=== PATIENT | male | born 1980 | race Caucasian/White ===

== ENCOUNTER 2023-12-07 15:57 | Inpatient (IN) | payer OTHER, SELFPAY ==
[2023-12-07] VITALS (14 sets, daily range): BP systolic 116–148; BP diastolic 67–86; BMI 29.6; BMI 30.1
[2023-12-07 12:52] LABS: Glucose - Point of Care 349 mg/dl (70-99)
--- NOTE | 2023-12-07 13:01 | EDRN ---
Dosed himself with 7 units Novolog u-100 via his pump
[2023-12-07 13:27] LABS: Venous Blood Gas B.E. -9.5 mmol/L (-4 to +4); Venous Blood Gas HCO3 15.9 mmol/L (22-27); Venous Blood Gas O2 Sat % 86.5 %; Venous Blood Gas pCO2 33 mmHg (35-48); Venous Blood Gas pH 7.29 (7.32-7.43); Venous Blood Gas pO2 53 mmHg (30-50)
--- NOTE | 2023-12-07 13:33 | ED.GENMED ---
History of Present Illness
General
Chief Complaint: Abdominal Symptoms
Source: patient and spouse
Time Seen by Provider: 12/07/23 13:13
Travel History
Have you had any contact with someone who has COVID-19?: No
Do you have any symptoms of coronavirus? Fever > 100 degrees, chills, cough, shortness of breath, sore throat, loss of taste or smell, muscle aches, or headache?: No
History of Present Illness
History of Present Illness:
43-year-old male with past medical history of insulin-dependent diabetes, hypothyroidism presenting to the emergency department with his spouse from the primary care office after he went there this morning noting that since yesterday he has had
persistent lightheadedness, feelings of near syncope, persistent nausea and last night developed severe reflux-like symptoms unrelieved with Tums and his usual omeprazole. Patient states this morning his symptoms persisted which is why he went to
the primary care's office and upon leaving the primary care's office and getting to the emergency department had 1 episode of nonbloody nonbilious emesis. Patient denies any chest pain, palpitations, diaphoresis, exertional dyspnea, orthopnea,
bowel changes, dysuria, urinary urgency or hematuria (he does note some mild frequency). Patient states that his blood pressure at the primary care's office was a little bit low for him at 112/70. Notes that his glucometer shows his blood sugars
have been in the 70s and 80s. Social history was noncontributory.
Past History
Past History
ED Past Medical History: GERD, IDDM and Hypothyroidism
ED Past Surgical History: None
Social History
Tobacco: Non-smoker
Alcohol: Occasional
Drug: None
Personal: Single
Living: with family
Employment: Employed
Family History
Family History: Other
Review of Systems
Review of Systems
All Other Systems: ROS reviewed and negative except as documented in HPI and ROS
Phy Exam
Physical Exam
Physical Exam:
GENERAL: Alert , appears uncomfortable but not in any pain
EYE: Clear conjunctiva
NECK: Supple
ENT: o/p clr, mmm.
CARDIAC: Regular rate and rhythm, no murmur.
LUNGS: Clear breath sounds bilaterally, no acute respiratory distress, no wheezes/rales/rhonchi
ABDOMEN: Soft, mild epigastric tenderness, no r/g, no cvat
NEUROLOGICAL: Alert and oriented
SKIN: Warm and dry, skin intact.
MUSCULOSKELETAL: No edema, well perfused.
PSYCH: Normal and appropriate interaction.
Scores
Heart Failure Risk
Heart Failure Risk Score: Not Applicable
Heart Score for Chest Pain Patients
STEMI patient?: Not applicable
Withdrawal Assessment of Alcohol
Withdrawal Assessment Completed?: Not applicable
Course
Orders/Labs/Results
Orders:
Orders
12/07/23 12:44
EKG [Electrocardiogram (*1)] Urgent
Reason for Study: Syncope
EKG- Treatment ONCE
12/07/23 13:13
B-Hydroxybutyrate Urgent
Complete Blood Count/With Diff Urgent
Comprehensive Metabolic Panel Urgent
Lipase Urgent
Troponin I Urgent
Venous Blood Gas Urgent
%Oxygen/Room Air: ra
12/07/23 13:24
Urinalysis Reflex To Culture Urgent
Famotidine [Pepcid] 20 mg IV NOW STA
Mag Hydrox/Al Hydrox/Simeth [Maalox] 30 ml Phenobarb/Hyoscy/Atropine/Scop [] 10 ml Viscous Lidocaine 2% [Xylocaine Viscous Cup] 10 ml PO NOW
Ondansetron Injectable [Zofran] 4 mg IV NOW STA
12/07/23 13:34
Phenobarb/Hyoscy/Atropine/Scop [] 10 ml .ROUTE .STK-MED ONE
12/07/23 13:35
Mag Hydrox/Al Hydrox/Simeth [Maalox] 30 ml .ROUTE .STK-MED ONE
Viscous Lidocaine 2% [Xylocaine Viscous Cup] 15 ml .ROUTE .STK-MED ONE
12/07/23 14:03
Bedside Glucose- Treatment Q1H
IV Insert/Care/Rem.- Treatment PRN
12/07/23 14:14
Basic Metabolic Panel Q2H
12/07/23 14:15
Reg Insulin 100 Units/100 ml [Novolin R Insulin Infusion] 100 units in 100 ml IV NOW
12/07/23 15:29
Admit/Transfer Patient As Directed
Co-Sign Provider:
Level of Care: Inpatient admission
Assign to:: ICU
Physician / Group: Damon
Diagnosis: DKA
Reason for Hospitalization: see progress note
Expected length of stay greater than two midnights?: Yes
ELOS- Estimated Length of Stay in days: 2
I certify the patient meets the requirements for IP care: Yes
12/07/23 15:30
Code Status As Directed
Resuscitation Status: Full Code
12/07/23 15:41
Reg Insulin 100 Units/100 ml [Novolin R Insulin Infusion] 100 units in 100 ml IV PER PROTOCOL
Currently infusing. Continue current dose and titrate:: Yes
12/07/23 16:15
Basic Metabolic Panel Q2H
12/07/23 18:15
Basic Metabolic Panel Q2H
Abnormal Lab Results
12/07/23 12/07/23 12/07/23
12:50 13:13 14:14
WBC 13.0 H 10^3/uL
(4.8-10.8)
MCH 31.7 H pg
(27.0-31.0)
MPV 11.0 H fL
(7.4-10.4)
Abs Immat Gran (auto) 0.1 H 10^3/uL
(0-0.05)
Absolute Neuts (auto) 10.1 H 10^3/uL
(1.4-6.5)
Absolute Monos (auto) 0.8 H 10^3/uL
(0.1-0.6)
Neutrophils % 77.2 H %
(42.2-75.2)
Lymphocytes % 15.4 L %
(20.5-51.1)
VBG pH 7.29 L
(7.32-7.43)
VBG pCO2 33 L mmHg
(35-48)
VBG pO2 53 H mmHg
(30-50)
VBG HCO3 15.9 L mmol/L
(22-27)
Sodium 128 L mmol/L 131 L mmol/L
(135-145) (135-145)
Potassium 5.2 H mmol/L 5.2 H mmol/L
(3.5-5.1) (3.5-5.1)
Chloride 97 L mmol/L
(98-107)
Carbon Dioxide 11 L* mmol/L 12 L* mmol/L
(22-30) (22-30)
Glucose 416 H mg/dl 346 H mg/dl
(70-99) (70-99)
Calcium 12.5 H mg/dl 11.6 H mg/dl
(8.4-10.2) (8.4-10.2)
Total Bilirubin 2.6 H mg/dl
(0.2-1.3)
Alkaline Phosphatase 128 H U/L
(38-126)
B-Hydroxybutyrate 5.36 H mmol/L
(0.02-0.27)
POC Glucose 349 H mg/dl
(70-99)
12/07/23 12/07/23 12/07/23
14:18 15:05 15:31
WBC
MCH
MPV
Abs Immat Gran (auto)
Absolute Neuts (auto)
Absolute Monos (auto)
Neutrophils %
Lymphocytes %
VBG pH
VBG pCO2
VBG pO2
VBG HCO3
Sodium
Potassium
Chloride
Carbon Dioxide
Glucose
Calcium
Total Bilirubin
Alkaline Phosphatase
B-Hydroxybutyrate
POC Glucose 321 H mg/dl 294 H mg/dl 311 H mg/dl
(70-99) (70-99) (70-99)
12/07/23 13:13
Vital Signs
Initial and Last Documented VS:
Initial Vital Signs
Temp Pulse Resp BP Pulse Ox
97.9 F 113 16 121/82 98
12/07/23 12:42 12/07/23 12:42 12/07/23 12:42 12/07/23 12:42 12/07/23 12:42
Last Documented Vital Signs
Temp Pulse Resp BP Pulse Ox
97.9 F 81 15 148/86 98
12/07/23 12:42 12/07/23 15:06 12/07/23 15:06 12/07/23 15:06 12/07/23 15:06
Principal Planner consulted with Physician
Principal Planner consulted with physician?: Yes
Name of Physician Consulted: Noh
MDM/Problems Addressed
Differential Diagnosis Includes:
GERD, gastritis, peptic ulcer disease, pancreatitis, atypical ACS presentation, diabetic complication
MDM/Problems Addressed:
43-year-old male presenting the emergency department from primary care's office for evaluation of persistent lightheadedness, abdominal discomfort, nausea and reflux-like symptoms. Patient was noted to be tachycardic on arrival however upon arrival
into the room and IV fluids started heart rate has normalized and now in the upper 80s. [id number] glucose shows patient has a current glucose of 350. Patient's glucometer still shows that his blood sugars have been between 70 and 80 over the
last hour or so I suspect there may be a certified medical coder malfunction. I do have clinical concern for possible DKA given current symptoms. Labs have been sent by nursing staff including beta hydroxybutyrate as well as a VBG. Fluids continuing.
Will likely need to bolus further insulin. Patient did take 7 units more insulin upon finding out his glucose was 350. Potential admission.
Chronic conditions affecting care: DM
Acute Exacerbation and/or Progression of Chronic Illness: DM
*Pulse Oximetry
Patient hypoxic: no
*EKG
Interpreted by ED Provider?: Yes
Comparison EKG: no changes
Heart Rate: 85
Rate: normal
Rhythm: sinus
[place]: normal axis
Ischemia: no ischemia
*Mercerizing Range Feeder Interpretation
Rate: normal
Rhythm: sinus
*Critical Care Note
Total Time (30-74mins, 75-104mins- exclusive of procedures): 35
comment:
Critical care statement: A total of 35 minutes of critical care time was provided for this patient. This includes management of unstable vital signs, evaluation of the patient at bedside, reviewing the patient's pertinent medical records, discussion
with consultants, review of old EKGs and review of pertinent medical records. This time with separate from time utilized to perform the aforementioned documented procedures
Patient Management
Discussion with other providers: Hospitalist, PCP and Urgent Care Nurse Practitioner
Escalation/DeEscalation of care consider admission/obs:
Patient's chemistry shows a bicarb of 11. Anion gap is 20. His pH is 7.29. Beta hydroxybutyrate is also significantly elevated at greater than 5. Again I suspect glucometer malfunction is the most likely reason. I notified our hospitalist team
as well as the ICU. Hospitalist accepts for continued evaluation and treatment. I also notified patient's primary care provider as patient was at the office this morning and sent to the ER by the primary care provider.
ED Attending Note
-
Portions of this chart may have been created with voice recognition software.� Occasional wrong word or��sound alike� substitutions may have occurred due to the inherent limitations of voice recognition software.
Discharge Plan
Departure
Patient Disposition: Admit
Date of Disposition: 12/07/23
Time of Disposition: 14:09
Presentation/result/management discussed w/ accepting MD/DO: Hospitalist
Discharge Problem:
DKA (diabetic ketoacidosis)
Prescriptions:
No Action
levothyroxine [Synthroid] 75 mcg Tablet
75 mcg PO DAILY
alprazolam [Xanax] 0.25 mg Tablet
0.25 mg PO HS
amlodipine [Norvasc] 10 mg Tablet
10 mg PO QPM
calcium carbonate [Tums] 200 mg calcium (500 mg) Tablet,Chewable
200 mg PO BIDPRN PRN (Reason: gerd)
losartan 100 mg Tablet
100 mg PO QPM
bupropion HCl [Wellbutrin XL] 150 mg Tablet Extended Release 24 Hr
150 mg PO DAILY
omeprazole 20 mg Tablet,Delayed Release (Dr/Ec)
20 mg PO HS
Patient Own Insulin
0 unit SC .CONTINUOUS
Rx Instructions:
patient via pump novolog
Referrals:
Evans Smith MD [Family Provider] -
Interventions
Interventions:
*Risk Screen - Suicide Last Done: 12/07/23 13:15
*Neglect/Abuse Screening Last Done: 12/07/23 13:15
*ED COVID-19 Vaccine History Last Done: 12/07/23 13:15
VO-Trlvwy-Ulbkdsftfz Assessment Last Done: 12/07/23 13:16
Discharge Date and Time
Print Language: LATVIAN
[2023-12-07 13:37] LABS: % Basophils 0.6 % (0-2); % Eosinophils 0.5 % (0-6); % Immature Granulocytes 0.4 % (0-0.5); % Lymphocytes 15.4 % (20.5-51.1); % Monocytes 5.9 % (1.7-9.3); % Neutrophils 77.2 % (42.2-75.2); Absolute Basophils 0.1 10^3/uL (0-0.2); Absolute Eosinophils 0.1 10^3/uL (0-0.7); Absolute Immature Granulocytes 0.1 10^3/uL (0-0.05); Absolute Monocytes 0.8 10^3/uL (0.1-0.6); Absolute Neutrophils 10.1 10^3/uL (1.4-6.5); Hematocrit 45.5 % (39.0-52.0); Hemoglobin 16.3 g/dL (13.0-18.0); Mean Corp Hgb Conc. 35.8 g/dL (33.0-37.0); Mean Corpuscular Hgb 31.7 pg (27.0-31.0); Mean Corpuscular Volume 88.3 fL (80.0-94.0); Nucleated Red Blood Cells % 0 % (-); Platelet Count 258 10^3/uL (130-400); Red Blood Cell Count 5.15 10^6/uL (4.70-6.10); Red Cell Dist. Width 11.8 % (11.5-14.5)
[2023-12-07] MEDS: ZOFRAN 4 MG IV (13:39)
[2023-12-07] MEDS: PEPCID 20 MG IV (13:39)
[2023-12-07 13:52] LABS: Troponin I < 0.012 ng/ml
[2023-12-07] MEDS: MAALOX 50 PO (13:52)
[2023-12-07 13:59] LABS: ALT (SGPT) 28 U/L (0-50); AST (SGOT) 20 U/L (17-59); Albumin 4.8 g/dl (3.5-5.0); Alkaline Phosphatase 128 U/L (38-126); Blood Urea Nitrogen 18 mg/dl (9-20); Calcium 12.5 mg/dl (8.4-10.2); Carbon Dioxide 11 mmol/L (22-30); Chloride 97 mmol/L (98-107); Estimated Creatinine Clearance 101 ml/min; Glucose 416 mg/dl (70-99); Lipase 39 U/L (23-300); Potassium 5.2 mmol/L (3.5-5.1); Sodium 128 mmol/L (135-145); Total Bilirubin 2.6 mg/dl (0.2-1.3); Total Protein 7.8 g/dl (6.3-8.2); eGFR > 60.00
[2023-12-07] MEDS: NSS 1000 IV ×3 (14:00→22:28)
[2023-12-07 14:03] LABS: B-Hydroxybutyrate 5.36 mmol/L (0.02-0.27)
[2023-12-07 14:20] LABS: Glucose - Point of Care 321 mg/dl (70-99)
[2023-12-07] MEDS: NOVOLIN R INSULIN INFUSION 100 IV ×2 (14:30→16:26)
[2023-12-07] MEDS: NSS IV (14:41)
[2023-12-07 14:53] LABS: Blood Urea Nitrogen 18 mg/dl (9-20); Calcium 11.6 mg/dl (8.4-10.2); Carbon Dioxide 12 mmol/L (22-30); Chloride 98 mmol/L (98-107); Estimated Creatinine Clearance 124 ml/min; Glucose 346 mg/dl (70-99); Potassium 5.2 mmol/L (3.5-5.1); Sodium 131 mmol/L (135-145); eGFR > 60.00
[2023-12-07 15:06] LABS: Glucose - Point of Care 294 mg/dl (70-99)
[2023-12-07 15:33] LABS: Glucose - Point of Care 311 mg/dl (70-99)
--- NOTE | 2023-12-07 15:45 | HPS.HSE ---
Family Physician
-
Family Physician: Evans Smith
Chief Complaint
-
Extreme lightheadedness and extreme nausea.
History of Present Illness
patient is type I diabetic on insulin pump.
For a Month he is not feeling much hungry, he was having 1 meal a day. His appetite was poor. No abdominal pain. No nausea vomiting. No change in bowel habits.
His symptoms got really worse yesterday. He started to have extreme lightheadedness. He was feeling extremely nauseous. Diet soda sort of helped him. He was hardly eating. He states he was not eating much because of his stress and he went on
antidepressants recently. Lost 20 pounds in a month.
Last night he felt his stomach was full. He was having increasing heartburn. He takes omeprazole for his GERD. He was feeling a burning in his throat. Last night his heartburn symptoms were really unstoppable.
He went to see his primary care physician and apparently his blood pressure was low with some tachycardia so referred to the ER. In the ER we discovered his lab glucose was very high at 416 and Accu-Cheks was 350. His CGM shows flat blood sugars
around 70s today and it has been the case for several days according to the patient .
He uses insulin pump tandem x2. Same pump for many years. Got a dexcom G-7 which has closed-loop connection with his insulin pump. He placed the last one 5 to 7 days ago. He now wonders if his Sensor is working in the Dexcom. He also had
attempts at upgrading the software so that the pump can coordinate with his dexcom. It did not so the tandem helped him to swap the hardware or so.
Medical History
Past Medical History
Past Medical History: Reports GERD, HTN and IDDM
Past Surgical History: Reports None
Social History
Tobacco: Non-smoker
Alcohol: Occasional
Drug: None
Personal:
Living: With Family
Family History
Family History: Not pertinent
Allergies / Home Medications
Allergies reflects when Allergies were last updated in [email or web address].
Home Medications with original date entered in [email or web address]
Allergy/Medication List:
Allergies
Allergy/AdvReac Type Severity Reaction Status Date / Time
No Known Allergies Allergy Unverified 01/22/17 01:02
Home Medications
Patient Own Insulin 0 unit SC .CONTINUOUS 12/07/23
alprazolam 0.25 mg tablet (Xanax) 0.25 mg PO HS 12/07/23
amlodipine 10 mg tablet (Norvasc) 10 mg PO QPM 12/07/23
bupropion HCl 150 mg 24 hr tablet, extended release (Wellbutrin XL) 150 mg PO DAILY 12/07/23
calcium carbonate (Tums) 200 mg PO BIDPRN PRN gerd 12/07/23
levothyroxine 75 mcg tablet (Synthroid) 75 mcg PO DAILY 12/07/23
losartan 100 mg tablet 100 mg PO QPM 12/07/23
omeprazole 20 mg tablet,delayed release 20 mg PO HS 12/07/23
Review of Systems
-
A 12 point ROS was completed and negative except as noted: Yes
Physical Exam
Vital Signs
Vital Signs
Temp Pulse Resp BP Pulse Ox
97.9 F 81 15 148/86 98
12/07/23 12:42 12/07/23 15:06 12/07/23 15:06 12/07/23 15:06 12/07/23 15:06
Physical Exam
General: Comfortable
HEENT: Moist mucous membranes
Respiratory: Clear
Cardiac: S1/S2 and Regular Rhythm; No Tachycardia
GI: Soft, Non Distended, Normal Bowel Sounds and Tender (epigastric area; no rebound or guarding)
Neuro: AO x 3
Psych: Calm
Laboratory Results
-
12/07/23 13:13
Laboratory Results
Total Bilirubin 2.6 mg/dl (0.2-1.3) H 12/07/23 13:13
AST 20 U/L (17-59) 12/07/23 13:13
ALT 28 U/L (0-50) 12/07/23 13:13
Alkaline Phosphatase 128 U/L (38-126) H 12/07/23 13:13
Troponin I < 0.012 ng/ml 12/07/23 13:13
Lipase 39 U/L (23-300) 12/07/23 13:13
Data Reviewed
-
Lab Data: Labs Reviewed by me
Impression/Plan
-
DKA- Patient with type 1 diabetes mellitus on insulin pump with no prior history of DKA presents with nonspecific above symptoms and noted to have elevated blood sugars with ketoacidosis and elevated anion gap. Suspect secondary to
malfunctioning of Dexcom continuous glucometer sensor. Admit to ICU. Start on DKA protocol. Follow his nonspecific symptoms with resolution of DKA and if persistent will evaluate further. Consult diabetic nurse practitioner to look into the
Dexcom device. Hold his regular insulin pump while he is on IV insulin. Follow BMP every 2 hours while in insulin pump.
Abnormal LFTs-mildly elevated bilirubin and alkaline phosphatase noted. Check direct bilirubin. The patient has been having worsening GERD symptoms and poor appetite with weight loss. Check an ultrasound of the abdomen to rule out any biliary
pathology.
Hypertension-continue with his home medication
Depression-continue with his home medication
Full code
--- NOTE | 2023-12-07 15:52 | CON.INTV ---
Consultation
Consultation Request
Date/Time Consultation Requested: 12/06
Date/Time Consultation Performed: 12/06
Reason for Consultation: Critical care
Medical History
-
History of Present Illness:
History obtained from patient and girlfriend at the bedside, reviewing medical records. Patient with history of diabetes, 25 years, well-controlled according to patient. Cannot recall recent A1c but thinks it was in the 7 range. Developed
increased heartburn in the last month, usually triggered by anxiety/stress. Patient takes daily GERD therapy. For the past 2 days, noticed increased nausea, emesis with dry heaving, worsening GERD, kept him up through the night. Patient had
emesis, blood sugars at home read in the 80s. Patient was brought to [facility] where upon arrival, afebrile, pulse 113, breathing at 16, blood pressure 121/82. 98% saturation. Patient found to have elevated blood sugar 350. Anion gap
acidemia noted. Patient started on IV fluids, insulin therapy. Admitted to ICU for further management 12/07/23.
Since evaluation and treatment of the ED, patient is feeling somewhat improved, less nausea. Described general myalgias and extreme fatigue
.
PMH: Diabetes x 25 years, history of pneumonia at age 18, GERD, hypothyroidism
Past Medical History
Past Medical History: None (See above)
Past Surgical History: None (See above)
Social History
Tobacco: Non-smoker
Alcohol: Occasional
Drug: None
Personal: Partner (Lives with girlfriend, has a dog)
Living: Alone
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
Family History
Family History: Other (Only child. Parents are alive. Healthy. Family history negative for blood clots, cancer. No children)
Allergies / Home Medications
Allergies
Allergy/AdvReac Type Severity Reaction Status Date / Time
No Known Allergies Allergy Unverified 01/22/17 01:02
Home Medications
�Medication �Instructions �Recorded �Confirmed �Last Taken �Type
Patient Own Insulin 0 unit SC .CONTINUOUS 04/08/24 04/08/24 Unknown History
alprazolam 0.25 mg tablet (Xanax) 0.25 mg PO HS 12/07/23 12/07/23 12/06/23 History
amlodipine 10 mg tablet (Norvasc) 10 mg PO QPM 12/07/23 12/07/23 12/04/23 History
bupropion HCl 150 mg 24 hr tablet, 150 mg PO DAILY 12/07/23 12/07/23 Unknown History
extended release (Wellbutrin XL)
calcium carbonate (Tums) 200 mg PO BIDPRN PRN gerd 12/07/23 12/07/23 12/06/23 History
levothyroxine 75 mcg tablet 75 mcg PO DAILY 12/07/23 12/07/23 Unknown History
(Synthroid)
losartan 100 mg tablet 100 mg PO QPM 12/07/23 12/07/23 12/04/23 History
omeprazole 20 mg tablet,delayed 20 mg PO HS 12/07/23 12/07/23 Unknown History
release
Review of Systems
-
All other systems: Negative unless noted (Describes 20 pound weight loss over the past month, unintentional. Patient describes increased stress from legal issues)
Vitals / Labs / Diagnostic Testing
Vital Signs
Temp Pulse Resp BP Pulse Ox
97.9 F 81 15 148/86 98
12/07/23 12:42 12/07/23 15:06 12/07/23 15:06 12/07/23 15:06 12/07/23 15:06
Lab Data
12/07/23 13:13
Diagnostic Testing:
Physical Exam
-
HEENT: Normocephalic and Anicteric
Cardiovascular: S1/S2, Regular Rhythm, Murmur (n), Rub (n), Peripheral Edema (n) and Calf Tenderness (n)
Respiratory: Wheeze (n), Rales (n), Rhonchi (n) and Non-Labored Respirations
GI: Soft, Non Distended and Tender (Mild midepigastric, no rebound or guarding)
Neurology: Awake, Alert, Oriented and No Motor Deficits (Moves all extremities)
Skin: Other (No clubbing, cyanosis. Cool extremities, capillary refill greater than 3 seconds)
General: Comfortable
Assessment
-
43-year-old male with history of IDDM x 25 years, GERD with increased stress/anxiety x 1 month, 20 pound weight loss, worsening GERD symptoms. Over the past 2 days increased nausea/emesis, mild shortness of breath. GERD kept him up throughout the
night. Patient was seen by primary physician, had episode of emesis and brought himself into [facility] found to be in DKA. Admitted to ICU for further management. Glucometer apparently nonfunctional at home
Acute DKA
Nausea/emesis x 2 days
Mild leukocytosis
Hyponatremia/hyperkalemia
Hypercalcemia
Recent initiation of bupropion
20 pound weight loss x 1 month
Conditions present prior to admission
Hypothyroidism
Hypertension
IDDM x 25 years
History of pneumonia
GERD
Plan/recommendations
At this time, patient is critically ill with metabolic acidemia, elevated anion gap, hyperglycemia, hyponatremia/hyperkalemia
Emesis/nausea, poor p.o. intake for the past 48 hours
Patient describes increased GERD x 1 month, anorexia, 20 pound weight loss
Moving forward
Continue with IV fluids, IV insulin
Follow electrolytes, replete potassium as able
Follow calcium
EKG unremarkable
antiemetic therapy
Follow blood sugars
Check chest x-ray
Check hemoglobin A1c
Patient describes 20 pound weight loss over the past month
Has been under a lot of stress/anxiety secondary to legal problems
Denies any illicit drug use
Additional workup may be deferred as outpatient depending on clinical course
DVT prophylaxis: Sequential teds, add pharmacological prophylaxis
GI prophylaxis: GERD therapy
Reviewed with critical care nursing, patient, girlfriend at bedside
We will follow
TCCT 31 min
--- NOTE | 2023-12-07 16:00 | PN.DE.MGMTRT ---
Insulin Management
- -
12/07/2023: Diabetes Management Consult
43 year old male with a PMH includes: T1DM uses tandem T-Slim with Dexcom G7 CGM, admitted for Extreme lightheadedness and extreme nausea, noted for DKA, GAP 21, Cr 1.1-->0.9, eGFR >60.
Pt has been started on DKA protocol, currently NPO and plan to admit to ICU.
Will follow up when GAP has closed, ideally tomorrow and assess for readiness to transition back to insulin pump.
Diabetes History
- -
Type of Diabetes: 1
Pre-Admission Diabetes Regimen
12/07/23 12/07/23
13:13 14:14
Creatinine 1.1 0.9
Insulin Pump Settings
IP Diabetes Regimen
12/07/23 12/07/23 12/07/23
12:50 13:13 14:14
Glucose 416 H 346 H
POC Glucose 349 H
12/07/23 12/07/23 12/07/23
14:18 15:05 15:31
Glucose
POC Glucose 321 H 294 H 311 H
Patient Education
[2023-12-07 16:26] LABS: Urine Albumin Negative (Neg - Trace); Urine Bilirubin Negative (Negative); Urine Character Clear (Clear); Urine Color Yellow; Urine Glucose 3+ (Negative); Urine Ketone 3+ (Negative); Urine Leukocyte Negative (Negative); Urine Nitrite Negative (Negative); Urine Occult Blood Negative (Negative); Urine Specific Gravity 1.025 (<1.030); Urine Urobilinogen Negative (Neg - 1+)
[2023-12-07 16:42] LABS: Blood Urea Nitrogen 16 mg/dl (9-20); Calcium 11.3 mg/dl (8.4-10.2); Carbon Dioxide 12 mmol/L (22-30); Chloride 100 mmol/L (98-107); Estimated Creatinine Clearance 124 ml/min; Glucose 308 mg/dl (70-99); Potassium 5.7 mmol/L (3.5-5.1); Sodium 130 mmol/L (135-145); eGFR > 60.00
[2023-12-07 17:10] LABS: Glucose - Point of Care 319 mg/dl (70-99)
[2023-12-07 17:11] LABS: Direct Bilirubin 0.7 mg/dl (0.0-0.4)
[2023-12-07 18:14] LABS: Glucose - Point of Care 268 mg/dl (70-99)
--- NOTE | 2023-12-07 18:45 | PTCARENOTE ---
Pt arrived from ER at approx 1810 on stretcher. Pt oriented x3, walked to bathroom without difficulty. Complete CHG bath given. Complete assessment done and documented. Accu check done on arrival= 268, Reg insulin drip adjusted to 4 units/hr. NSS
started at 150 ml/hr as ordered. PT/PTT drawn and sent to lab. Pt's girlfriend, Lesli, in room. Pt now starting his clear liq diet dinner. Report given to warehouse worker 2nd shift RN. VSS.
[2023-12-07] MEDS: NORVASC 10 MG PO (18:51)
[2023-12-07] MEDS: LOVENOX 40 MG SC (18:51)
[2023-12-07 19:02] LABS: APTT 27.6 Sec (23.4-35.0); INR 1.13; PT 14.4 Sec (11.4-14.6)
[2023-12-07 19:12] LABS: Blood Urea Nitrogen 15 mg/dl (9-20); Calcium 10.6 mg/dl (8.4-10.2); Carbon Dioxide 13 mmol/L (22-30); Chloride 103 mmol/L (98-107); Estimated Creatinine Clearance 121 ml/min; Glucose 285 mg/dl (70-99); Potassium 5.7 mmol/L (3.5-5.1); Sodium 130 mmol/L (135-145); eGFR > 60.00
[2023-12-07 19:12] LABS: Glucose - Point of Care 228 mg/dl (70-99)
[2023-12-07] MEDS: D5/0.45%NACL 1000 IV (19:49)
[2023-12-07 20:37] LABS: Glucose - Point of Care 277 mg/dl (70-99)
[2023-12-07 20:40] LABS: Blood Urea Nitrogen 15 mg/dl (9-20); Calcium 10.2 mg/dl (8.4-10.2); Carbon Dioxide 13 mmol/L (22-30); Chloride 103 mmol/L (98-107); Estimated Creatinine Clearance 121 ml/min; Glucose 297 mg/dl (70-99); Potassium 5.1 mmol/L (3.5-5.1); Sodium 128 mmol/L (135-145); eGFR > 60.00
[2023-12-07 21:27] LABS: Glucose - Point of Care 348 mg/dl (70-99)
[2023-12-07 22:20] LABS: Glucose - Point of Care 363 mg/dl (70-99)
[2023-12-07] MEDS: PROTONIX 40 MG PO (22:31)
[2023-12-07] MEDS: XANAX 0.25 MG PO (22:31)
[2023-12-07 22:32] LABS: Blood Urea Nitrogen 14 mg/dl (9-20); Carbon Dioxide 13 mmol/L (22-30); Chloride 99 mmol/L (98-107); Estimated Creatinine Clearance 121 ml/min; Glucose 403 mg/dl (70-99); Potassium 4.6 mmol/L (3.5-5.1); Sodium 127 mmol/L (135-145); eGFR > 60.00
[2023-12-07 23:22] LABS: Glucose - Point of Care 380 mg/dl (70-99)
[2023-12-08] VITALS (12 sets, daily range): BP systolic 101–131; BP diastolic 71–88; BMI 30.1
[2023-12-08 00:12] LABS: Glucose - Point of Care 364 mg/dl (70-99)
[2023-12-08 00:37] LABS: Blood Urea Nitrogen 12 mg/dl (9-20); Carbon Dioxide 16 mmol/L (22-30); Chloride 101 mmol/L (98-107); Estimated Creatinine Clearance 121 ml/min; Glucose 285 mg/dl (70-99); Potassium 4.3 mmol/L (3.5-5.1); Sodium 131 mmol/L (135-145); eGFR > 60.00
[2023-12-08] MEDS: MAALOX 30 ML PO (01:18)
[2023-12-08 01:29] LABS: Glucose - Point of Care 212 mg/dl (70-99)
[2023-12-08 02:17] LABS: Glucose - Point of Care 168 mg/dl (70-99)
[2023-12-08 03:07] LABS: Blood Urea Nitrogen 12 mg/dl (9-20); Calcium 9.8 mg/dl (8.4-10.2); Carbon Dioxide 17 mmol/L (22-30); Chloride 104 mmol/L (98-107); Estimated Creatinine Clearance 121 ml/min; Glucose 172 mg/dl (70-99); Potassium 4.2 mmol/L (3.5-5.1); Sodium 133 mmol/L (135-145); eGFR > 60.00
[2023-12-08 03:23] LABS: Glucose - Point of Care 170 mg/dl (70-99)
[2023-12-08 04:18] LABS: Glucose - Point of Care 184 mg/dl (70-99)
[2023-12-08] MEDS: D5/0.45%NSS with KCL 20 MEQ 1000 IV ×2 (04:18→09:22)
--- NOTE | 2023-12-08 04:50 | PTCARENOTE ---
12/07/23- received pt from silvia PEÑA, girlfriend at bedside. assessments completed, admission completed. no c/o pain or discomfort, Q1hr blood sugar checks completed and changes made per protocol.
18 g IV placed in L arm for blood [id number] labs drawn and sent, changes made as needed per TENSILE TESTER.
patient up walking to bathroom, voiding with no difficulty,
patient on clear liq diet at this time, NPO at midnight for ultrasound in am.
12/08/23 - patient sleeping as well as possible with frequent labs/blood sticks,
pt offers complaints of heartburn, new order for maalox received, no further complaints.
ivf changed to d5 1/2 nss with 20 K+
blood sugars remain under 200, gap not closed as of yet.
no further needs at this time,
labs drawn and sent for 4am, no new orders
cell phone and personal belongings within reach.
[2023-12-08 05:25] LABS: Glucose - Point of Care 179 mg/dl (70-99)
[2023-12-08 05:28] LABS: Hematocrit 39.8 % (39.0-52.0); Mean Corp Hgb Conc. 35.2 g/dL (33.0-37.0); Mean Corpuscular Hgb 31.6 pg (27.0-31.0); Mean Corpuscular Volume 89.8 fL (80.0-94.0); Mean Platelet Volume 10.7 fL (7.4-10.4); Platelet Count 215 10^3/uL (130-400); Red Blood Cell Count 4.43 10^6/uL (4.70-6.10); Red Cell Dist. Width 11.9 % (11.5-14.5); White Blood Cell Count 7.1 10^3/uL (4.8-10.8)
[2023-12-08 05:51] LABS: ALT (SGPT) 20 U/L (0-50); AST (SGOT) 15 U/L (17-59); Albumin 3.8 g/dl (3.5-5.0); Alkaline Phosphatase 91 U/L (38-126); Blood Urea Nitrogen 11 mg/dl (9-20); Calcium 9.2 mg/dl (8.4-10.2); Carbon Dioxide 17 mmol/L (22-30); Chloride 106 mmol/L (98-107); Estimated Creatinine Clearance 121 ml/min; Glucose 173 mg/dl (70-99); Magnesium 1.7 mg/dl (1.6-2.3); Potassium 4.2 mmol/L (3.5-5.1); Sodium 133 mmol/L (135-145); Total Bilirubin 1.5 mg/dl (0.2-1.3); Total Protein 6.5 g/dl (6.3-8.2); eGFR > 60.00
[2023-12-08] MEDS: SYNTHROID 75 MCG PO (06:12)
[2023-12-08 06:23] LABS: Glucose - Point of Care 181 mg/dl (70-99)
[2023-12-08 07:12] LABS: Glucose - Point of Care 170 mg/dl (70-99)
--- NOTE | 2023-12-08 07:45 | PTCARENOTE ---
Pt now in chair at the bedside. He is able to ambulate to the BR w/1 assist due to IV pump and monitoring cables. Good peripheral pulses, no edema. lungs CTA. +BSx4. No nausea. Tolerating clears. Right AC with IVF and right FA with Insulin drip at
2units/hr per DKA protocol. He is aware we need his Insulin Pump to prepare for his discharge. He verbalized his understanding. Reviewed the plan of care with Dr. Jose. Safe environment maintained. Will continue to monitor.
[2023-12-08] MEDS: WELLBUTRIN XL (24 hour extended release) 150 MG PO (08:02)
[2023-12-08 08:07] LABS: Glucose - Point of Care 187 mg/dl (70-99)
--- NOTE | 2023-12-08 08:54 | W.PN.HOSP.TC ---
Today's Communication/Plan
-
DC planning
Assessment / Plan
Assessment / Plan
DKA- Patient with type 1 diabetes mellitus on insulin pump with no prior history of DKA presents with nonspecific above symptoms and noted to have elevated blood sugars with ketoacidosis and elevated anion gap. Suspect secondary to malfunctioning
of Dexcom continuous glucometer sensor.
Improved blood sugars. Improved acidosis. Anion gap closed.
Await diabetic nurse educator to look into sensory issues ; reassume subcutaneous insulin pump today once the supplies are available.
Abnormal LFTs-mildly elevated bilirubin and alkaline phosphatase noted. Normalized alkaline phosphatase. Improved bilirubin. Unclear if related to DKA. Ultrasound shows no evidence of obstructive biliary disease.
Cholelithiasis- asymptomatic. Patient with multiple small stones. He also has longstanding diabetes mellitus which is type I. I doubt if there is conclusive evidence of prophylactic cholecystectomy in this scenario. Will refer to surgery as OP.
GERD - long standing and sympatomatic . CW PPI . Seen GI for routine EGD for Jama's eval.
Hypertension-continue with his home medication
Depression-continue with his home medication
Full code
Once placed on insulin pump advance diet and DC home.
Discussed with the patient about DKA, cholelithiasis, GERD and follow-up needed.
Total time of discharge 32 minutes
Anticipated Discharge: Today
Subjective/Interval History
-
Date of Service: December 08, 2023
Patient had a bit of heartburn
feeling okay. No nausea vomiting. Tolerating clear liquid diet.
No abdominal pain.
He thinks his weight loss is because of recent stresses in life and depression needing to go on medication.
Denies any changes in bowel habits or gastroparesis symptoms.
He does have GERD which is been on for the last 2 to 3 years. He gets sometimes symptoms 3 times a week. PPI helpful. Has not had a EGD in the recent past.
Objective Data
-
Labs:
Laboratory Results
12/07/23 12/07/2312/07/24
18:00 22:04 00:14
WBC
Hgb
Hct
Plt Count
Sodium Cancelled 127 L 131 L
Potassium Cancelled 4.6 4.3
Chloride Cancelled 99 101
Carbon Dioxide Cancelled 13 L* 16 L
BUN Cancelled 14 12
Creatinine Cancelled 0.9 0.9
Glucose Cancelled 403 H 285 H
Calcium Cancelled 10.0 10.0
Total Bilirubin
AST
ALT
Alkaline Phosphatase
12/08/23 12/08/23
02:04 03:57
WBC 7.1
Hgb 14.0
Hct 39.8
Plt Count 215
Sodium 133 L 133 L
Potassium 4.2 4.2
Chloride 104 106
Carbon Dioxide 17 L 17 L
BUN 12 11
Creatinine 0.9 0.9
Glucose 172 H 173 H
Calcium 9.8 9.2
Total Bilirubin 1.5 H D
AST 15 L
ALT 20
Alkaline Phosphatase 91
Vital Signs:
Vital Signs
Temp Pulse Resp BP Pulse Ox
98.1 F 66 19 124/81 96
12/08/23 08:13 12/08/23 08:30 12/08/23 08:30 12/08/23 08:10 12/08/23 08:30
I&O
12/07/23 12/08/23 12/09/23
06:59 06:59 06:59
Intake Total 4562 / 4714 304 / 304
Output Total 1974 800 / 800
Balance 2587 / 2739 -496 / -496
Review of Systems
-
EENT: Denies Sore Throat
Respiratory: Denies Cough or Trouble Breathing
Cardiac: Denies Chest Pain
Neuro: Denies Dizzy or Headache
Physical Exam
-
General: No Apparent Distress
HEENT: Moist Mucous Membranes
Respiratory: Clear to Auscultation
Cardiac: Regular Rhythm and S1/S2
GI: Soft, Nontender, Nondistended and Normal Bowel Sounds
Neuro: AO x 3
Data Reviewed
-
Labs: Labs Reviewed by me
--- NOTE | 2023-12-08 09:04 | W.DS.TRANS ---
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
-
Discharge Instructions:
Discharge Diagnosis/Procedures DKA
Diet Diabetic, Carb Controlled
Activity As tolerated
Driving Restrictions As prior to admission
Bathing Restrictions None
Instructions:
Stand-Alone Forms:
Changes to Home Medications: No
Discharge Medications:
DC Medications w/original date entered in [facility]
Patient Own Insulin 0 unit SC .CONTINUOUS Diabetes 12/07/23
alprazolam 0.25 mg tablet (Xanax) 0.25 mg PO HS Mental Health/Anxiety 12/07/23
amlodipine 10 mg tablet (Norvasc) 10 mg PO QPM Blood Pressure 12/07/23
atorvastatin 20 mg tablet 20 mg PO QPM High Cholesterol 12/07/23
bupropion HCl 150 mg 24 hr tablet, extended release (Wellbutrin XL) 150 mg PO DAILY Mental Health/Anxiety 12/07/23
calcium carbonate (Tums) 200 mg PO BIDPRN PRN gerd 12/07/23
levothyroxine 75 mcg tablet (Synthroid) 75 mcg PO DAILY Thyroid 12/07/23
losartan 100 mg tablet 100 mg PO QPM Blood Pressure 12/07/23
omeprazole 20 mg tablet,delayed release 20 mg PO HS Gastrointestinal Issue 12/07/23
Home Medication Changes
Pending Results: No
[2023-12-08 09:18] LABS: Glucose - Point of Care 200 mg/dl (70-99)
--- NOTE | 2023-12-08 09:34 | PN.DE.MGMTRT ---
Insulin Management
- -
12/08/2023: Diabetes Management Consult Follow up
Patient admitted with lightheadedness and extreme nausea, noted for DKA, GAP 21, Cr 1.1-->0.9, eGFR > 60.with a PMH includes: T1DM uses tandem T-Slim X2 pump with Control IQ with Dexcom G7 CGM. Patient recently upgraded pump to Control IQ.
Insulin pump was taken home.
Patient is on DKA insulin infusion requiring .7 to 6 units of insulin per hour. GAP now 10, will transition back to pump when it arrives.
I spoke with patient, he is awake alert and oriented out of bed. States prior to admission his DexCom was reading 78 to 82 the entire time. He says on admission his glucose was 364 and his sensor was 81. Sensor is placed appropriately on the back
of his L arm. Suggested he report to DexCom this disparity. In the future, when not feeling well or there is a question about the sensor accuracy he should always test by fingerstick. Recommended Reli-monitor.
Pump brought from home, will restart pump then discontinue insulin infusion 1 hour later.
Pump settings:
Basal Correction Carb ratio Target
12am 1.4 50 7 110
8am 1.2 50 7 110
1pm 1.2 50 4 110
6pm 1.3 50 7 110
24 hour basal total 31 units.
Infusion set is in, DexCom G7 is warming up.
Discussed with nurse time to turn off insulin infusion.
Diabetes History
- -
Type of Diabetes: 1
Pre-Admission Diabetes Regimen
12/07/23 12/07/23 12/07/23
13:13 14:14 16:09
Creatinine 1.1 0.9 0.9
12/07/23 12/07/23 12/07/23
18:00 18:37 20:12
Creatinine Cancelled 0.9 0.9
12/07/23 12/08/23 12/08/23
22:04 00:14 02:04
Creatinine 0.9 0.9 0.9
12/08/23
03:57
Creatinine 0.9
Insulin Pump Settings
IP Diabetes Regimen
12/07/23 12/07/23 12/07/23
12:50 13:13 14:14
Glucose 416 H 346 H
POC Glucose 349 H
12/07/23 12/07/23 12/07/23
14:18 15:05 15:31
Glucose
POC Glucose 321 H 294 H 311 H
12/07/23 12/07/23 12/07/23
16:09 17:08 18:00
Glucose 308 H Cancelled
POC Glucose 319 H
12/07/23 12/07/23 12/07/23
18:03 18:37 19:01
Glucose 285 H
POC Glucose 268 H 228 H
12/07/23 12/07/23 12/07/23
20:12 20:13 21:06
Glucose 297 H
POC Glucose 277 H 348 H
12/07/23 12/07/23 12/07/23
22:01 22:04 23:09
Glucose 403 H
POC Glucose 363 H 380 H
12/07/23 12/08/23 12/08/23
23:51 00:14 01:12
Glucose 285 H
POC Glucose 364 H 212 H
12/08/23 12/08/23 12/08/23
02:00 02:04 03:02
Glucose 172 H
POC Glucose 168 H 170 H
12/08/23 12/08/23 12/08/23
03:57 03:59 05:12
Glucose 173 H
POC Glucose 184 H 179 H
12/08/23 12/08/23 12/08/23
06:12 07:05 08:06
Glucose
POC Glucose 181 H 170 H 187 H
12/08/23
09:16
Glucose
POC Glucose 200 H
Meal type: Breakfast
Meal type: Dinner
Amount consumed: 100%
Patient Education
--- NOTE | 2023-12-08 09:58 | W.PN.INTV ---
Addendum entered and electronically signed by Rossy Redmond MD 12/08/23 14:52:
Chest x-ray reviewed. No active process
Original Note:
Today's Communication / Plan
Recommendations
Awaiting initiation of insulin pump
Ambulate
Replete magnesium
Check chest x-ray
Disposition efforts
Assessment
-
43-year-old male with history of IDDM x 25 years, GERD with increased stress/anxiety x 1 month, 20 pound weight loss, worsening GERD symptoms. Over the past 2 days increased nausea/emesis, mild shortness of breath. GERD kept him up throughout the
night. Patient was seen by primary physician, had episode of emesis and brought himself into [place] found to be in DKA. Admitted to ICU for further management. Glucometer apparently nonfunctional at home
Acute DKA
Nausea/emesis x 2 days
Mild leukocytosis
Hyponatremia/hyperkalemia
Hypercalcemia
Recent initiation of bupropion
20 pound weight loss x 1 month
Conditions present prior to admission
Hypothyroidism
Hypertension
IDDM x 25 years
History of pneumonia
GERD
Plan/recommendations
At this time, patient is much improved objectively and subjectively.
Emesis/nausea, resolved
Patient describes increased GERD x 1 month, anorexia, 20 pound weight loss
Moving forward
Continue with IV fluids, IV insulin
Follow electrolytes
Transition to insulin pump, appreciate diabetic HORSES OR MULES TEAMSTER input
Patient did not get chest x-ray. will order prior to dc
Patient describes 20 pound weight loss over the past month
Has been under a lot of stress/anxiety secondary to legal problems
Denies any illicit drug use
Additional workup may be deferred as outpatient depending on clinical course
DVT prophylaxis: Sequential teds, add pharmacological prophylaxis
GI prophylaxis: GERD therapy
Reviewed with critical care nursing, patient, girlfriend at bedside
Disposition efforts
Subjective Dataa
Subjective Data
Date of Service:
Date of Service: December 08, 2023
Subjective:
Patient is feeling much better. Denies chest pain, shortness of breath, nausea, headaches. Girlfriend at bedside.
Objective Data
Data Reviewed
Vital Signs / I&O / Oxygen:
Vital Signs
Temp Pulse Resp BP Pulse Ox
98.1 F 66 19 124/81 96
12/08/23 08:13 12/08/23 08:30 12/08/23 08:30 12/08/23 08:10 12/08/23 08:30
Intake and Output
12/07/23 12/08/23 12/09/23
06:59 06:59 06:59
Intake Total 4562 / 4714 304 / 304
Output Total 1974 / 1974 800 / 800
Balance 2587 / 2739 -496 / -496
SaO2 96
Physical Exam
General: Comfortable
HEENT: Normocephalic and Anicteric
Cardiovascular: S1-S2, Regular Rhythm, Murmur (n), Rub (n), Peripheral Edema (n) and Calf Tenderness (n)
Respiratory: Wheeze (n), Crackles (n), Rhonchi (n), Non-Labored Respirations and Stridor (n)
GI: Soft, Non Distended and Non Tender
Neurology: Awake, Alert and No Motor Deficits
Skin: Cyanosis (n) and Jaundice (n)
Labs/Micro/Reports
Lab Data
12/08/23 03:57
12/08/23 03:57
Laboratory Results
12/07/23
18:42
PT 14.4
INR 1.13
APTT 27.6
[2023-12-08 10:22] LABS: Glucose - Point of Care 199 mg/dl (70-99)
[2023-12-08] MEDS: MAGNESIUM OXIDE 500 MG PO (11:04)
[2023-12-08 11:07] LABS: Glucose - Point of Care 212 mg/dl (70-99)
[2023-12-08 11:13] LABS: Glycohemoglobin (HgbA1c) 8.9 % (4.0-5.6)
--- NOTE | 2023-12-08 11:18 | PTCARENOTE ---
Clarified with Hellen VERNON regarding Insulin drip and recent glucose of 212 now that pt's insulin pump/device is now functional. Will adjust Insulin drip per our DKA protocol. Awaiting diet order.
--- NOTE | 2023-12-08 12:01 | CM ---
Addendum entered by Gerardo Gilman 12/08/23 14:50:
Discharge order is noted.
Both pt and his sig other are aware, expressed their agreement with discharge.
D/C plan: home no needs. Sig other to transport.
Original Note:
CM following re: discharge planning.
Discussed in Rounds, reviewed pt's chart, met with pt and pt's sig bessy Ballesteros at bedside.
Pt is a 43 year old male, admitted with primary dx of DKA.
Pt reports he lives with sig bessy Ballesteros in a 2SH, 2 steps to enter, has no children. Pt described himself as independent in al areas [employer], drives, works. Pt reports he has been dealing with diabetes for the past 20 years, has glucometer and insulin
pump and per pt he has been managing well.
PCP: Evans Smith
Pharmacy: [facility]
D/c plan: home with anticipated no needs. Sig other to transport at discharge.
CM will follow with discharge plan updates as hospitalization progresses
[2023-12-08 12:08] LABS: Glucose - Point of Care 194 mg/dl (70-99)
[2023-12-08] MEDS: PT'S OWN INSULIN PUMP - NovoLOG 8 UNIT SC (12:10)
--- NOTE | 2023-12-08 12:28 | PTCARENOTE ---
Hellen VERNON notified of recent glucose of 194. Insulin drip and IVF off at this time. Pt now eating his lunch. He is aware of 2 view CXR after he is done eating.
[2023-12-08] MEDS: NSS 1000 IV (14:00)
--- NOTE | 2023-12-08 14:00 | W.DS.TRANS ---
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
-
Discharge Instructions:
Discharge Diagnosis/Procedures DKA due to device malfunction; cholelithiasis
Diet Diabetic, Carb Controlled
Activity As tolerated
Driving Restrictions As prior to admission
Bathing Restrictions None
Instructions:
Stand-Alone Forms:
Changes to Home Medications: No
Discharge Medications:
DC Medications w/original date entered in [employer]
Patient Own Insulin 0 unit SC .CONTINUOUS Diabetes 12/07/23
alprazolam 0.25 mg tablet (Xanax) 0.25 mg PO HS Mental Health/Anxiety 12/07/23
amlodipine 10 mg tablet (Norvasc) 10 mg PO QPM Blood Pressure 12/07/23
atorvastatin 20 mg tablet 20 mg PO QPM High Cholesterol 12/07/23
bupropion HCl 150 mg 24 hr tablet, extended release (Wellbutrin XL) 150 mg PO DAILY Mental Health/Anxiety 12/07/23
calcium carbonate (Tums) 200 mg PO BIDPRN PRN gerd 12/07/23
levothyroxine 75 mcg tablet (Synthroid) 75 mcg PO DAILY Thyroid 12/07/23
losartan 100 mg tablet 100 mg PO QPM Blood Pressure 12/07/23
omeprazole 20 mg tablet,delayed release 20 mg PO HS Gastrointestinal Issue 12/07/23
Home Medication Changes
Pending Results: No
--- NOTE | 2023-12-08 14:01 | W.DCSUMMARY ---
Discharge Summary
Discharge Data
Date of Admission: 12/07/23
Date of Discharge: 12/08/23
-
Pending Results: No
Hospital Course
Primary diagnosis:
Diabetic ketoacidosis suspected secondary to device malfunction.
Cholelithiasis.
Secondary diagnosis:
Diabetes mellitus type 1
Hospital course:
Patient presented with a extreme lightheaded and nausea. He was hardly eating. Did not have much appetite. No abdominal pain. He also said that he was not eating much and losing weight because of the recent stresses in life and depression. He
lost 20 pounds in a month.
He also has longstanding GERD and that was worse prior to admission. No changes in the bowel habits.
When he had Accu-Cheks in the ED they were 349 but his Dexcom monitor was showing Accu-Cheks in 70s to 80s range.
Further testing showed he was in diabetic ketoacidosis with elevated blood sugar, acidosis and increased anion gap.
His DKA resolved with switch to IV insulin drip.
No other acute medical issues identified for him to be in DKA. He never had a DKA before.
New Dexcom was placed and his insulin pump is back in place and his blood sugars are controlled. He was advised to speak with Dexcom people and report issue. He was also seen by diabetic nurse educator.
Because of the GI symptoms and elevated bilirubin alkaline phosphatase an ultrasound was obtained which showed multiple small gallstones but no associated complications. His alkaline phosphatase normalized next day
And his bilirubin was dropping. Could be reactive to DKA. He has no symptoms from his gallstones. But in view of multiple small stones in diabetes I am not sure if there is a role of prophylactic cholecystectomy. He was advised to go to see a
surgeon.
He also has longstanding GERD symptoms for over 3 years since get symptoms of GERD sometimes up to 3 times a week so he was advised to get a surveillance endoscopy for Jama's.
Discharge Plan
-
Patient Disposition: Home (Routine Discharge)
Discharge Diagnosis/Procedures: DKA due to device malfunction; cholelithiasis
Diet: Diabetic, Carb Controlled
Activity: As tolerated
Driving Restrictions: As prior to admission
Bathing Restrictions: None
Referrals:
Evans Smith MD [Family Provider] - in less than 1 week
Omari Navarrete MD [Active] - in one month (To follow on gall bladder stones)
Cassie Klein DO [Active] - in one month (To follow on GERD )
Prescriptions:
Continued
levothyroxine [Synthroid] 75 mcg Tablet
75 mcg PO DAILY
alprazolam [Xanax] 0.25 mg Tablet
0.25 mg PO HS
Patient Comments:
per PDMP, filled once on 11/09/23 #30 for 30 days
amlodipine [Norvasc] 10 mg Tablet
10 mg PO QPM
calcium carbonate [Tums] 200 mg calcium (500 mg) Tablet,Chewable
200 mg PO BIDPRN PRN (Reason: gerd)
losartan 100 mg Tablet
100 mg PO QPM
bupropion HCl [Wellbutrin XL] 150 mg Tablet Extended Release 24 Hr
150 mg PO DAILY
omeprazole 20 mg Tablet,Delayed Release (Dr/Ec)
20 mg PO HS
Patient Own Insulin
0 unit SC .CONTINUOUS
Rx Instructions:
patient via pump novolog
atorvastatin 20 mg Tablet
20 mg PO QPM
Discharge Orders:
Discharge Patient (As Directed); Ordered 12/08/23
Ordered By: Dg Jose
Discharge Date and Time
Print Language: BELIZEAN
--- NOTE | 2023-12-08 14:43 | PTCARENOTE ---
All discharge instructions provided. All iv sites removed, pressure held until hemostasis, gauze dressings applied. Reviewed discharge packet and medication list and when medications due next. He was provided copies of his labs and radiology
reports. He verbalized his understanding.
--- NOTE | 2023-12-08 14:45 | EDRN ---
eR PROVIDER swathi Gipson GAVE VERBAL ORDERS FOR 2000 ML nss BOLUS WHEN PT WAS IN THE er WHICH WERE GIVEN. hE FORGOT TO WRITE THE ORDERS SO THEY WERE JUST ADDED NOW AND SIGNED OFF ON THE mar
== END 2023-12-08 14:50 | disposition home or self-care (01) | DRG 638 ==
LOC: ICU 15:57
PROVIDERS: Nurse Practitioner; Physician Assistant Medical; ADMITTING PHYSICIAN Internal Medicine; CONSULT PHYSICIAN Internal Medicine Critical Care Medicine; EMERGENCY PHYSICIAN Emergency Medicine; FAMILY PHYSICIAN Family Medicine
DX: E10.10 Type 1 diabetes mellitus with ketoacidosis without coma (principal); E87.1 Hypo-osmolality and hyponatremia; E87.5 Hyperkalemia; E83.52 Hypercalcemia; E03.9 Hypothyroidism, unspecified; I10 Essential (primary) hypertension; K21.9 Gastro-esophageal reflux disease without esophagitis; Z79.4 Long term (current) use of insulin; Z96.41 Presence of insulin pump (external) (internal); F32.A Depression, unspecified; K80.20 Calculus of gallbladder without cholecystitis without obstruction
CPT/HCPCS: 71046; 76700; 80048; 80053; 81003; 82010; 82248; 82805; 82962; 83036; 83690; 83735; 84484; 85025; 85027; 85610; 85730; 93005; 96374; 96375; 99291

== ENCOUNTER 2023-12-29 17:37 | Emergency (ER) | payer OTHER, SELFPAY ==
[2023-12-29 17:41] VITALS: BP 142/95
[2023-12-29 17:51] LABS: Glucose - Point of Care 159 mg/dl (70-99)
--- NOTE | 2023-12-29 18:46 | ED.GENMED ---
History of Present Illness
General
Chief Complaint: Blood Sugar Problem
Time Seen by Provider: 12/29/23 18:22
Travel History
Have you had any contact with someone who has COVID-19?: No
Do you have any symptoms of coronavirus? Fever > 100 degrees, chills, cough, shortness of breath, sore throat, loss of taste or smell, muscle aches, or headache?: No
History of Present Illness
History of Present Illness:
43-year-old male with history of hypertension and insulin-dependent diabetes presents to the emergency department for evaluation of lightheadedness and extremity tremors ongoing for the past 2 to 3 days. He states the symptoms are similar to when
he had earlier this month. He has an insulin pump linked to his Dexcom and his sugar readings have been within normal ranges. He did have small amount of ketones on urine dipstick test at home today. Denies any abdominal pain or vomiting.
Past History
Past History
ED Past Medical History: GERD, IDDM and Hypothyroidism
ED Past Surgical History: None
Social History
Tobacco: Non-smoker
Alcohol: Occasional
Drug: None
Personal: Single
Living: with family
Employment: Employed
Family History
Family History: Other
Review of Systems
Review of Systems
Allergies reviewed?: Yes
All Other Systems: ROS reviewed and negative except as documented in HPI and ROS
Phy Exam
Physical Exam
Physical Exam:
GEN: Well appearing, NAD, WDWN
HEENT: Oral mucosa moist, no scleral icterus
Cardiac: Regular rate and rhythm, no murmurs
Lung: No respiratory distress, no tachypnea
MSK: No gross deformity or injuries
Skin: Good color, no pallor or jaundice, no rashes
Neuro: AO x3, moves all extremities freely, no extremity weakness x 4. Mild tremulousness of bilateral hands
Psych: Calm, cooperative
Course
Orders/Labs/Results
Orders:
Orders
12/29/23 18:44
0.9% Sodium Chloride 1000 ml [Nss] 1,000 ml IV BOLUS
12/29/23 19:02
Complete Blood Count/No Diff Urgent
Comprehensive Metabolic Panel Urgent
Magnesium Urgent
Urinalysis Reflex To Culture Urgent
Date Specimen was Collected: 12/29/23
Time Specimen was Collected: 18:57
Abnormal Lab Results
12/29/23 12/29/23
17:50 19:02
RBC 4.66 L 10^6/uL
(4.70-6.10)
MCH 31.8 H pg
(27.0-31.0)
Glucose 184 H mg/dl
(70-99)
POC Glucose 159 H mg/dl
(70-99)
12/29/23 19:02
12/29/23 19:02
Vital Signs
Initial and Last Documented VS:
Initial Vital Signs
Temp Pulse Resp BP Pulse Ox
98.7 F 107 20 142/95 96
12/29/23 17:41 12/29/23 17:41 12/29/23 17:41 12/29/23 17:41 12/29/23 17:41
Last Documented Vital Signs
Temp Pulse Resp BP Pulse Ox
98.7 F 75 16 116/82 95
12/29/23 17:41 12/29/23 20:01 12/29/23 20:01 12/29/23 19:57 12/29/23 20:01
MDM/Problems Addressed
MDM/Problems Addressed:
Patient's labs are reassuring, no lab or clinical evidence of DKA. Unclear etiology to symptoms, no evidence for metabolic dyscrasia. He has no fevers or leukocytosis concerning for infectious etiology. Patient reassured, discharged in stable
condition
*Critical Care Note
Total Time (30-74mins, 75-104mins- exclusive of procedures): Not Applicable
ED Attending Note
-
Portions of this chart may have been created with voice recognition software.� Occasional wrong word or��sound alike� substitutions may have occurred due to the inherent limitations of voice recognition software.
Discharge Plan
Departure
Patient Disposition: Home (Routine Discharge)
Date of Disposition: 12/29/23
Time of Disposition: 19:54
Patient with high blood pressure during this ER visit?: Yes
Discharge Problem:
Lightheadedness, Limb tremor
Instructions: Dizziness, Nonvertigo, (DC)
Prescriptions:
No Action
levothyroxine [Synthroid] 75 mcg Tablet
75 mcg PO DAILY
alprazolam [Xanax] 0.25 mg Tablet
0.25 mg PO HS
Patient Comments:
per PDMP, filled once on 11/09/23 #30 for 30 days
amlodipine [Norvasc] 10 mg Tablet
10 mg PO QPM
calcium carbonate [Tums] 200 mg calcium (500 mg) Tablet,Chewable
200 mg PO BIDPRN PRN (Reason: gerd)
losartan 100 mg Tablet
100 mg PO QPM
bupropion HCl [Wellbutrin XL] 150 mg Tablet Extended Release 24 Hr
150 mg PO DAILY
omeprazole 20 mg Tablet,Delayed Release (Dr/Ec)
20 mg PO HS
Patient Own Insulin
0 unit SC .CONTINUOUS
Rx Instructions:
patient via pump novolog
atorvastatin 20 mg Tablet
20 mg PO QPM
Referrals:
NONE,* [Active] -
Interventions
Interventions:
*Risk Screen - Suicide Last Done: 12/29/23 19:06
*General Assessment Last Done: 12/29/23 19:06
*Neglect/Abuse Screening Last Done: 12/29/23 19:06
ED- Fall Risk Assessment Last Done: 12/29/23 19:06
*ED COVID-19 Vaccine History Last Done: 12/29/23 17:41
*Nursing Disposition Last Done: 12/29/23 20:01
ED- Neurological Assessment Last Done: 12/29/23 19:06
Discharge Date and Time
Discharge Date/Time: 12/29/23 20:04
Print Language: ICELANDIC
[2023-12-29] MEDS: NSS 1000 IV (19:04)
[2023-12-29 19:06] VITALS: BP 121/78; BMI 31.7
[2023-12-29 19:14] LABS: Urine Albumin Negative (Neg - Trace); Urine Bilirubin Negative (Negative); Urine Character Clear (Clear); Urine Color Yellow; Urine Glucose Negative (Negative); Urine Ketone Negative (Negative); Urine Leukocyte Negative (Negative); Urine Nitrite Negative (Negative); Urine Occult Blood Negative (Negative); Urine Urobilinogen Negative (Neg - 1+)
[2023-12-29 19:16] LABS: Hematocrit 42.1 % (39.0-52.0); Hemoglobin 14.8 g/dL (13.0-18.0); Mean Corp Hgb Conc. 35.2 g/dL (33.0-37.0); Mean Corpuscular Hgb 31.8 pg (27.0-31.0); Mean Corpuscular Volume 90.3 fL (80.0-94.0); Mean Platelet Volume 10.3 fL (7.4-10.4); Platelet Count 221 10^3/uL (130-400); Red Blood Cell Count 4.66 10^6/uL (4.70-6.10); Red Cell Dist. Width 12.5 % (11.5-14.5); White Blood Cell Count 8.2 10^3/uL (4.8-10.8)
[2023-12-29 19:26] LABS: ALT (SGPT) 28 U/L (0-50); AST (SGOT) 26 U/L (17-59); Albumin 4.1 g/dl (3.5-5.0); Alkaline Phosphatase 121 U/L (38-126); Blood Urea Nitrogen 13 mg/dl (9-20); Calcium 9.5 mg/dl (8.4-10.2); Carbon Dioxide 23 mmol/L (22-30); Chloride 105 mmol/L (98-107); Estimated Creatinine Clearance > 125 ml/min; Glucose 184 mg/dl (70-99); Magnesium 1.9 mg/dl (1.6-2.3); Potassium 4.4 mmol/L (3.5-5.1); Sodium 135 mmol/L (135-145); Total Bilirubin 0.8 mg/dl (0.2-1.3); eGFR > 60.00
[2023-12-29 19:57] VITALS: BP 116/82
== END 2023-12-29 20:04 | disposition home or self-care (01) ==
LOC: EMR 17:37
PROVIDERS: Physician Assistant; EMERGENCY PHYSICIAN Emergency Medicine; FAMILY PHYSICIAN Family Medicine
DX: R25.1 Tremor, unspecified (principal); R42 Dizziness and giddiness; I10 Essential (primary) hypertension; Z79.4 Long term (current) use of insulin; Z96.41 Presence of insulin pump (external) (internal)
CPT/HCPCS: 99284; 96360; 80053; 81003; 82962; 83735; 85027

== ENCOUNTER → 2025-06-14 14:52 | Outpatient (REF) | payer OTHER, SELFPAY | LOC: HWRAD 14:52 | PROVIDERS: ATTENDING PHYSICIAN Family Medicine | DX: M25.512 Pain in left shoulder (principal) | CPT/HCPCS: 73030 ==